=== PATIENT | female | born 1945 | race American Indian/Alaskan Native ===

== ENCOUNTER 2016-12-21 13:11 | Outpatient (CLI) | payer MEDICARE ==
--- NOTE | 2016-12-21 16:13 | Mammography Report ---
BILATERAL DIGITAL SCREENING MAMMOGRAM with CAD: 12/21/16 13:11:00 CLINICAL: Routine screening. COMPARISON:12/16/15 FINDINGS: The breasts are almost entirely fatty. No mass, architectural distortion or suspicious calcifications. IMPRESSION: No mammographic evidence of malignancy. BI-RADS CATEGORY: 1 - - Negative RECOMMENDATION: Routine mammographic screening in one year. COMMENT: Patient follow-up letters are generated by our [employer] application.
== END 2016-12-21 13:12 | disposition home or self-care (01) ==
LOC: MAMMO 13:11
PROVIDERS: ATTEND Internal Medicine
DX: Z12.31 Encounter for screening mammogram for malignant neoplasm of breast (principal)
CPT/HCPCS: 77067; G0202

== ENCOUNTER 2017-05-19 14:10 | Emergency (ER) | payer MEDICARE ==
--- NOTE | 2017-05-19 15:34 | Emergency Department Report ---
Chief Complaint: Chest Pain Stated Complaint: CHEST Time Seen by Provider: 05/19/17 15:02 - HPI History of Present Illness: Patient is a 72-year-old female who is presenting with atypical chest pain. Patient states that she is just eaten lunch. Patient states that this was approximately 3 hours prior to exam she was eating lunch felt fine and then started getting chest pressure in the center chest. A [employer] salami sandwich and maori fries. Patient had one episode similar to this approximately one month ago after eating potato chips. Patient does have GERD but states that she 's been doing fine from that does not get daily heartburn like she did in the past. Patient denies any shortness of breath nausea vomiting. The patient's pain resolved within 10 minutes. - Exam Vital Signs: Vital Signs 05/19/17 14:13 Temperature 98.4 F Pulse Rate 76 Respiratory 20 Rate Blood Pressure 137/69 O2 Sat by Pulse 99 Oximetry MSE screening note: Focused history and physical exam performed. Due to findings the following was ordered: ED Medical Decision Making - EKG Data When compared to previous EKG there are: previous EKG unavailable Interpretation: no acute changes, normal EKG ED Disposition for MSE Condition: Stable Referrals: PRIMARY CARE, [Primary Care Provider] - 3-5 Days
[2017-05-19 15:48] LABS: Basophils % (Auto) 0.6 % (0.0-1.8); Eosinophils % (Auto) 6.1 % (0.0-4.3); Hematocrit 42.4 % (30.3-42.9); Hemoglobin 13.4 gm/dl (10.1-14.3); Mean Corpuscular HGB Conc 32 % (30-34); Mean Corpuscular Hemoglobin 27 pg (28-32); Mean Corpuscular Volume 85 fl (79-97); Platelet Count 240 K/mm3 (140-440); Red Blood Count 5.01 M/mm3 (3.65-5.03); Red Cell Distribution Width 14.5 % (13.2-15.2); White Blood Count 5.6 K/mm3 (4.5-11.0)
[2017-05-19 16:03] LABS: Anion Gap 17 mmol/L; BUN/Creatinine Ratio 23; Blood Urea Nitrogen 27 mg/dL (7-17); Calcium 9.1 mg/dL (8.4-10.2); Carbon Dioxide 27 mmol/L (22-30); Chloride 104.1 mmol/L (98-107); Glucose 89 mg/dL (65-100); Potassium 4.5 mmol/L (3.6-5.0); Sodium 144 mmol/L (137-145)
--- NOTE | 2017-05-19 17:25 | Ultrasound Report ---
FINAL REPORT PROCEDURE: US ABDOMEN LIMITED TECHNIQUE: Real-time sonography was performed of the right upper quadrant with image documentation. CPT 70779 HISTORY: Chest pain after fatty food medial COMPARISON: No prior studies are available for comparison. FINDINGS: Liver echogenicity mildly diffusely increased consistent with fatty infiltration. Simple appearing cyst is visualized in the right lobe of the liver measuring 1 centimeter. Gallbladder is incompletely distended although appears grossly normal in was not tender. No gallstones are visualized. Common bile duct is normal caliber measuring 5.7 millimeters. Intrahepatic ducts are not dilated. No ascites is visualized. The right kidney showed no abnormalities measuring 9.1 centimeters greatest length. Proximal abdominal aorta was visualized which showed no abnormality. Mid and distal abdominal aorta were not visualized.. IMPRESSION: Fatty infiltration the liver. Small simple appearing liver cyst visualized as described. Evaluation of the gallbladder is limited. The gallbladder was incompletely distended although otherwise was unremarkable. No other abnormalities are identified.
--- NOTE | 2017-05-19 18:37 | Emergency Department Report ---
ED Chest Pain HPI - General Chief Complaint: Chest Pain Stated Complaint: CHEST Time Seen by Provider: 05/19/17 15:02 Source: patient Mode of arrival: Ambulatory Limitations: No Limitations - History of Present Illness Initial Comments: 72-year-old female past medical history GERD, anxiety presents with episode of brief chest pain and esophageal discomfort after eating today. Patient is currently asymptomatic. Symptoms lasted briefly. Denies any associated diaphoresis or shortness of breath. Patient was medically screened by Dr. Wood before I evaluated the patient. Patient is awake alert and oriented 3 not in acute distress. States that brief episodes of discomfort occurred immediately after eating. Denies any significant nausea vomiting diarrhea. Denies fevers or chills. Denies dysuria -: This morning Onset: after eating Pain Location: epigastric Pain Radiation: none Severity: mild Consistency: now resolved Improves With: nothing Worsens With: nothing - Related Data Allergies Allergy/AdvReac Type Severity Reaction Status Date / Time erythromycin base AdvReac Severe UPSET Unverified 08/25/13 09:02 [Erythromycin Base] STOMACH Penicillins AdvReac Severe LONG TIME Unverified 08/25/13 09:01 AGO BEANS AdvReac Severe ASTHMA,HYPE Uncoded 08/25/13 09:01 RVENTILATIN G Heart Score - HEART Score History: Slightly suspicious EKG: Normal Age: > 65 Risk factors: 1-2 risk factors Troponin: < normal limit HEART Score: 3 ED Review of Systems ROS: Stated complaint: CHEST Other details as noted in HPI Constitutional: denies: chills, fever Eyes: denies: eye pain, eye discharge, vision change ENT: denies: ear pain, throat pain Respiratory: denies: cough, shortness of breath, wheezing Cardiovascular: denies: chest pain, palpitations Endocrine: no symptoms reported Gastrointestinal: denies: abdominal pain, nausea, diarrhea Genitourinary: denies: urgency, dysuria, discharge Musculoskeletal: denies: back pain, joint swelling, arthralgia Skin: denies: rash, lesions Neurological: denies: headache, weakness, paresthesias Psychiatric: denies: anxiety, depression Hematological/Lymphatic: denies: easy bleeding, easy bruising ED Past Medical Hx - Social History Smoking Status: Former Smoker Substance Use Type: None ED Physical Exam - General Limitations: No Limitations General appearance: alert, in no apparent distress - Head Head exam: Present: atraumatic, normocephalic - Eye Eye exam: Present: normal appearance, PERRL, EOMI - ENT ENT exam: Present: mucous membranes moist - Neck Neck exam: Present: normal inspection - Respiratory Respiratory exam: Present: normal lung sounds bilaterally. Absent: respiratory distress - Cardiovascular Cardiovascular Exam: Present: regular rate, normal rhythm. Absent: systolic murmur, diastolic murmur, rubs, gallop - GI/Abdominal GI/Abdominal exam: Present: soft, normal bowel sounds - Extremities Exam Extremities exam: Present: normal inspection - Back Exam Back exam: Present: normal inspection - Neurological Exam Neurological exam: Present: alert, oriented X3 - Psychiatric Psychiatric exam: Present: normal affect, normal mood - Skin Skin exam: Present: warm, dry, intact, normal color. Absent: rash ED Course Vital Signs 05/19/17 05/19/17 14:13 15:33 Temperature 98.4 F Pulse Rate 76 Respiratory 20 16 Rate Blood Pressure 137/69 O2 Sat by Pulse 99 Oximetry SUSANNA score - Susanna Score Age > 65: (1) Yes Aspirin use within the Past 7 Days: (1) Yes 3 or more CAD Risk Factors: (0) No 2 or more Angina events in past 24 hrs: (0) No Known CAD with more than 50% Stenosis: (0) No Elevated Cardiac Markers: (0) No ST Deviation Greater than 0.5mm: (0) No SUSANNA Score: 2 ED Medical Decision Making - Lab Data Result diagrams: 05/19/17 15:36 05/19/17 15:34 - Medical Decision Making A/P: Epigastric pain, right upper quadrant pain 1-ultrasound shows fatty liver disease 2-chest x-ray and labs reviewed with Dr. Wood before discharge. It is Dr. Wood's impression that this patient's pain is not cardiac in nature and is likely GI in nature 3-follow-up with gastroenterology 4-patient is already on regimen of antacids including Ranatidine and omeprazole 5 I emphasized the importance of follow-up with cardiology to the patient. Troponin negative 1,HEART score low Critical care attestation.: If time is entered above; I have spent that time in minutes in the direct care of this critically ill patient, excluding procedure time. ED Disposition Clinical Impression: Dyspepsia Disposition: DC-01 TO HOME OR SELFCARE Is pt being admited?: No Does the pt Need Aspirin: No Condition: Stable Instructions: Abdominal Pain (ED), Non-Alcoholic Fatty Liver Disease (ED) Referrals: [facility] [Provider Group] - 3-5 Days [facility] [Provider Group] - 3-5 Days Forms: Accompanied Note, Work/School Release Form(ED) Time of Disposition: 18:39
--- NOTE | 2017-05-19 18:48 | XRay Report ---
FINAL REPORT PROCEDURE: PA and lateral chest x-ray TECHNIQUE: PA and lateral chest radiographs were obtained. CPT 67167 HISTORY: Chest Pain COMPARISON: No prior studies are available for comparison. FINDINGS: Heart: Upper normal size. Mediastinum/Vessels: Normal. Lungs/Pleural space: Normal. Bony thorax: No acute osseous abnormality. Other: IMPRESSION: No acute abnormalities are identified..
[2017-05-19 18:49] VITALS: BP 142/80
== END 2017-05-19 18:48 | disposition home or self-care (01) ==
LOC: ED 14:10
DX: R06.00 Dyspnea, unspecified (principal); R07.9 Chest pain, unspecified
CPT/HCPCS: 36415; 71020; 76705; 80048; 84484; 85025; 93005; 93010

== ENCOUNTER 2017-06-02 13:40 | Outpatient (CLI) | payer MEDICARE ==
--- NOTE | 2017-06-02 15:53 | Ultrasound Report ---
Diagnostic left mammogram and left whole breast ultrasound including all 4 quadrants and subareolar regions. History: New-onset left mastodynia. The patient recent prior mammogram performed on December 21, 2016 was reviewed. Findings: The overall parenchymal pattern is stable with no evidence of mass or architectural distortion. No suspicious microcalcifications are seen. Sonographic Evaluation of the entire left breast was performed. No cystic or solid masses are seen. Impression: No suspicious imaging findings. BI-RADS code: 1. Recommendation: Annual mammography.
== END 2017-06-02 13:41 | disposition home or self-care (01) ==
LOC: MAMMO 13:40
PROVIDERS: ATTEND Internal Medicine
DX: N64.4 Mastodynia (principal); Z87.891 Personal history of nicotine dependence
CPT/HCPCS: 76641; G0206